=== PATIENT | female | born 1980 | race Caucasian/White ===

== ENCOUNTER 2020-10-17 14:19 | Emergency (ER) | payer OTHER, SELFPAY ==
[2020-10-17 14:32] VITALS: BP 134/89; PULSE 86; RESP 16; TEMP 37.4; O2SAT 100
--- NOTE | 2020-10-17 14:55 | ED.WOUNDLAC ---
HPI - Wound/Laceration General Chief Complaint: Wound/Laceration Stated Complaint: Dog Bite Source: patient Mode of arrival: ambulatory Limitations: no limitations History of Present Illness HPI narrative: Patient is a 39-year-old female who presents complaining with a dog bite to left hand and arm. Patient has puncture wound with abrasions to inner left wrist, puncture wound to top of him and large puncture wound to left index finger. Bleeding controlled. Patient reports dog that bit her has shots up-to-date. She denies taking iczs-zsx-ovozxct medications prior to arrival. Related Data Allergies Allergy/AdvReac Type Severity Reaction Status Date / Time Penicillins Allergy Unknown Unverified 04/11/15 17:29 Review of Systems Review of Systems: Narrative: CONSTITUTIONAL: Denies fever, chills, or sweats. EYES: Denies visual changes, redness, or discharge. ENT: Denies rhinorrhea, congestion, sore throat, or otalgia. CARDIOVASCULAR: Denies chest pain, palpitations, or edema. RESPIRATORY: Denies cough or dyspnea. GASTROINTESTINAL: Denies abdominal pain, nausea, vomiting, or diarrhea. GENITOURINARY: Denies dysuria or hematuria. SKIN: Dog bite to left hand and wrist MUSCULOSKELETAL: Denies back pain, joint pain, or myalgia. NEUROLOGIC: Denies headache, numbness, dizziness, or weakness. PSYCHIATRIC: Denies anxiety or depression. PMFSH Past Medical History Medical History No significant past medical history Surgical History Surgical History No significant past surgical history Family History Family History Other No significant family history Social History Social History Smoking status: Never smoker Alcohol intake: never Substance use: never Living arrangements: with family Occupation/Education: occupation Exam Narrative: Exam Narrative: GENERAL: Well-appearing, well-nourished, and in no acute distress. HEAD: Normocephalic, atraumatic. EYES: No redness or drainage. CHEST: No respiratory distress. EXTREMITIES: Normal range of motion. No edema. SKIN: Multiple abrasions to left wrist, small puncture wound left wrist. Small puncture wound with hematoma on dorsal hand, approximate 0.5 cm laceration to left index finger NEURO: No focal deficits. Alert and oriented x3. Gait steady. PSYCH: Normal affect. No signs of depression or anxiety. Course Vital Signs Vital signs: Vital Signs Temperature 37.4 C 10/17/20 14:32 Pulse Rate 86 10/17/20 14:32 Respiratory Rate 16 10/17/20 14:32 Blood Pressure 134/89 10/17/20 14:32 Pulse Oximetry 100 10/17/20 14:32 Temperature 37.4 C 10/17/20 14:32 Pulse Rate 86 10/17/20 14:32 Respiratory Rate 16 10/17/20 14:32 Blood Pressure 134/89 10/17/20 14:32 Pulse Oximetry 100 10/17/20 14:32 Reviewed. Patient has been instructed to follow-up with her PCP regarding her blood pressure. Procedures Laceration Laceration 1: Date: 10/17/20 Time: 15:38 Site: hand (Index finger) Side (If applicable): left Size (cm): 0.5 Description: irregular Depth: simple, single layer Local Anesthetic: lidocaine 1% Amount of anesthesia used (mL): 3 Pre-repair: irrigated ====== Skin Level ====== Skin layer closed with: nylon Size (cm): 5-0 Number of sutures: 2 Technique: simple, interrupted ====== Subcutaneous Layer ====== ====== Muscle Layer ====== ====== Tendon Layer ====== MDM - Wound/Laceration MDM Narrative Medical decision making narrative: Patient's multiple punctures and abrasions were cleansed thoroughly with wound cleanser, irrigation of larger puncture wound on left index finger. Patient's larger dog bite was suture
[2020-10-17] MEDS: TETANUS,DIPHTHERIA,AC PERTUSSIS ADULT (0.5 ML) BOOSTRIX IM (14:57)
--- NOTE | 2020-10-17 15:04 | PC.NURSE ---
was moved from room 3 to rm 1 per claims coordinator request.
--- NOTE | 2020-10-17 15:28 | PC.NURSE ---
1522 remote inpatient coder in to do sutures.
--- NOTE | 2020-10-17 15:46 | PC.NURSE ---
aware of awaiting dc papers from lens maker.
== END 2020-10-17 15:51 | disposition home or self-care (01) ==
PROVIDERS: Emergency Provider Nurse Practitioner
DX: S61.532A Puncture wound without foreign body of left wrist, initial encounter (principal); S61.432A Puncture wound without foreign body of left hand, initial encounter; S61.211A Laceration without foreign body of left index finger without damage to nail, initial encounter; S60.812A Abrasion of left wrist, initial encounter; W54.0XXA Bitten by dog, initial encounter; Z23 Encounter for immunization
CPT/HCPCS: 12001; 90471; 90715; 99213; G0463

== ENCOUNTER 2021-06-27 04:33 | Emergency (ER) | payer OTHER, SELFPAY ==
--- NOTE | ~2021-06-27 | US_ITS ---
EXAMINATION: US pelvic complete w TV DATE: 06/27/2021 08:08 INDICATION: Right pelvic pain TECHNIQUE: Multiple transabdominal and endovaginal sonographic images of the pelvis were obtained. COMPARISON: None. FINDINGS: The uterus measures 9.3 x 5.5 x 4.1 cm. The endometrial complex measures 6 mm. An IUD is in expected position. The right ovary measures 6.5 x 4.0 cm. There is a 5.4 x 3.9 cm complex cystic les ion with fluid level in the right ovary. The left ovary measures 2.3 x 1.9 x 2.5 cm and contains a 2. 1 x 1.8 x 2.1 cm cystic lesion with thin septation. There is normal vascular flow in the ovaries. The re is no free fluid in the pelvis. IMPRESSION: 1. Findings consistent with hemorrhagic cyst of the right ovary and cyst with thin septation of the l eft ovary. Reviewed, dictated and finalized at location B. IMPRESSION: 1. Findings consistent with hemorrhagic cyst of the right ovary and cyst with t hin septation of the left ovary.
[2021-06-27 04:35] VITALS: BP 130/93; PULSE 94; RESP 20; TEMP 36.7; O2SAT 99
[2021-06-27 04:53] LABS: Basophils Percent Auto 0.4 % (0.2-1.2); Eosinophils Absolute Auto 0.2 K/mm3 (0-0.3); Eosinophils Percent Auto 2.2 % (0-4.4); Hematocrit 41.5 % (37.0-47.0); Hemoglobin 13.7 g/dL (12.0-15.0); Immature Granulocyte Absolute 0.02 K/mm3 (0.00-0.031); Immature Granulocyte Percent A 0.2 % (0-0.5); Lymphocytes Absolute Auto 2.41 K/mm3 (0.9-3.2); Lymphocytes Percent Auto 25.5 % (18.3-44.2); Mean Corpuscular Hemoglobin 29.5 pg (26-34); Mean Corpuscular Volume 89.4 fl (80-100); Mean Platelet Volume 11.9 fl (7.4-10.4); Monocytes Absolute Auto 0.7 K/mm3 (0.1-0.6); Monocytes Percent Auto 7.3 % (2.6-8.5); Neutrophils Absolute Auto 6.1 K/mm3 (1.3-6.7); Neutrophils Percent Auto 64.4 % (45.5-73.1); Platelet Count Result 235 k/mm3 (150-375); Red Blood Count 4.64 M/mm3 (4.2-5.4); Red Cell Distribution Width 12.8 % (11.5-14.5); White Blood Count 9.4 K/mm3 (4.5-10.0)
[2021-06-27 04:56] LABS: Add Urine Microscopic? YES; Appearance Urine Clear (Clear); Bilirubin Urine Negative (Negative); Blood Urine Negative (Negative); Color Urine Yellow (Yellow); Glucose Urine UA Negative (Negative); Ketones Urine Negative (Negative); Leukocyte Esterase Ur Trace LEU/UL (Negative); Mucus Urine Rare /lpf; Nitrate Urine Negative (Negative); Protein Urine Negative (Negative); RBC Urine 0-2 /hpf (0-2); Specific Grav Ur 1.017 (1.001-1.035); Squamous Epithelial Cell Urine Occasional /hpf (Few); Urobilinogen Urine Negative mg/dL (<2.0); WBC Urine 0-3 /hpf
[2021-06-27 05:05] LABS: Alanine Aminotransferase 24 U/L (4-35); Albumin Level 4.3 g/dL (3.5-5.1); Alkaline Phosphatase 71 U/L (38-126); Anion Gap 7 mmol/L (8-16); Aspartate Amino Transferase 29 U/L (14-36); Bilirubin,Total 0.6 mg/dL (0.2-1.3); Blood Urea Nitrogen 10 mg/dL (7-17); Calcium 9.3 mg/dL (8.4-10.2); Carbon Dioxide 24 mmol/L (22-30); Chloride 106 mmol/L (98-107); Estimated CRCL calculation 107 ml/min; Estimated Glomerular Filt Rate > 60; Glucose 102 mg/dL (65-110); Lipase 52 U/L (23-300); Potassium 3.9 mmol/L (3.4-5.0); Sodium 137 mmol/L (137-145)
[2021-06-27 06:56] VITALS: BP 133/87; PULSE 87; RESP 16; O2SAT 100
--- NOTE | 2021-06-27 07:25 | ED.ABDPAIN ---
HPI - Abdominal Pain General Chief Complaint: Abdominal Pain Stated Complaint: pain rlq Time Seen by Provider: 06/27/21 07:08 History of Present Illness HPI narrative: RLQ/pelvic pain. Awoke her from sleep last night. Severe. Stabbing. Associated with nausea. No radiation. Currently completely pain free. She had one prior episode a few days ago. No previous surgeries. Related Data Home Medications Medication Instructions Recorded Confirmed No Home Medications 06/27/21 Allergies Allergy/AdvReac Type Severity Reaction Status Date / Time Penicillins Allergy Unknown Rash Unverified 06/27/21 04:40 Review of Systems Review of Systems: All systems reviewed & are unremarkable except as noted in HPI and below Constitutional: Constitutional: Denies chills and Denies fever(s) ENT: Reports system reviewed and no additional complaints, except as documented Cardiovascular: Cardiovascular: Denies chest pain Respiratory: Respiratory: Denies dyspnea Gastrointestinal: Gastrointestinal: Reports as per HPI Genitourinary: Genitourinary: Denies hematuria, Denies nocturia and Denies dysuria Neurologic: Reports system reviewed and no additional complaints, except as documented [facility] Past Medical History Medical History No significant past medical history Surgical History Surgical History No significant past surgical history Family History Family History Other No significant family history Social History Social History Smoking status: Never smoker Alcohol intake: never Substance use: never Gender identity (if verbalized by the patient): Female Sexual Orientation (if Verbalized by the Patient): Straight or Heterosexual Exam Const: General: healthy appearing, no acute distress and alert Orientation/consciousness: patient oriented x3 HENMT: Head: normal to inspection Neck: Neck: normal visual inspection and no lymphadenopathy Resp: Effort & Inspection: normal respiratory effort Auscultation: clear to auscultation bilaterally, no rales, no rhonchi and no wheezes Cardio: Jugular venous distension: no JVD Rate: regular rate Rhythm: regular rhythm Heart sounds: no murmurs GI: Inspection: non-distended GI Palp: Yes Soft to palpation and No Tenderness to palpation present (GI) Skin: General skin exam: normal color Neuro: General: patient oriented x3 and moves all extremities Speech: normal speech Extrem: General: no edema Psych: Appearance: well kempt Affect: normal affect Course Vital Signs Vital signs: Vital Signs Temperature 36.7 C 06/27/21 04:35 Pulse Rate 94 06/27/21 04:35 Respiratory Rate 20 06/27/21 04:35 Blood Pressure 130/93 H 06/27/21 04:35 Pulse Oximetry 99 06/27/21 04:35 Temperature 36.7 C 06/27/21 04:35 Pulse Rate 90 06/27/21 08:35 Respiratory Rate 19 06/27/21 08:35 Blood Pressure 126/87 06/27/21 08:35 Pulse Oximetry 98 06/27/21 08:35 MDM - Abdominal Pain MDM Narrative Medical decision making narrative: ovarian cysts on US. This is consistent with her pain. She will follow-up with her OBGYN. Medical Records Attestation: I reviewed the patient's medical records. Lab Data Attestation: I reviewed the patient's lab results. Result diagrams: 06/27/21 04:45 06/27/21 04:45 Labs: Lab Results 06/27/21 06/27/21 06/27/21 Range/Units 04:45 04:45 04:45 WBC 9.4 (4.5-10.0) K/mm3 RBC 4.64 (4.2-5.4) M/mm3 Hgb 13.7 (12.0-15.0) g/dL Hct 41.5 (37.0-47.0) % MCV 89.4 (80-100) fl MCH 29.5 (26-34) pg MCHC 33.0 (32-36) g/dl RDW 12.8 (11.5-14.5) % Plt Count 235 (150-375) k/mm3 MPV 11.9 H (7.4-10.4) fl Immature Gran % (Auto) 0.2 (0-0.5) %
[2021-06-27 08:35] VITALS: BP 126/87; PULSE 90; RESP 19; O2SAT 98
== END 2021-06-27 09:16 | disposition home or self-care (01) ==
PROVIDERS: General Practice; Emergency Provider Emergency Medicine; PCP Nurse Practitioner Family
DX: N83.201 Unspecified ovarian cyst, right side (principal); N83.202 Unspecified ovarian cyst, left side; Z97.5 Presence of (intrauterine) contraceptive device
CPT/HCPCS: 36415; 76830; 76856; 80053; 81001; 81025; 83690; 85025; 99284

== ENCOUNTER 2021-07-24 12:22 | Outpatient (CLI) | payer OTHER, SELFPAY ==
--- NOTE | ~2021-07-24 | US_ITS ---
EXAMINATION: US pelvic complete w TV EXAM DATE: 07/24/2021 13:09 INDICATION: R AND L cystic lesion. Right pelvic pain. TECHNIQUE: Pelvic transabdominal and transvaginal sonogram was performed. There are multiple graysca le and Doppler images available for interpretation. Comparison is made to prior examination from 06/27. FINDINGS: Uterus measures 9.4 x 4.2 x 5.2 cm, with IUD centrally located inside the endometrial cavi ty. Endometrial stripe measures 4 mm, within normal limits. There is no free pelvic fluid. Right adnexa: The ovary measures 8.6 x 4.5 x 5.9 cm, has heterogeneous complex cystic appearance. Dim ension is larger than on previous examination. Ovarian vascular flow confirmed. Left adnexa: The ovary measures 2.3 x 1.7 x 2.0 cm and is morphologically normal. Ovarian vascular fl ow confirmed. IMPRESSION: Complex cystic right ovarian mass, probably unruptured hemorrhagic cyst given rapid inter leroy increase in size compared to 3 weeks earlier. No torsion. Recommend 6 week follow-up pelvic sono gram. Reviewed, dictated and finalized at location A. IMPRESSION: Complex cystic right ovarian mass, probably unruptured hemorrhagic cyst given rapid interval increase in size compared to 3 weeks earlier. No tor grover. Recommend 6 week follow-up pelvic sonogram.
[2021-07-27 01:08] LABS: CA-125 7 U/mL (<35)
== END 2021-07-24 12:23 | disposition home or self-care (01) ==
PROVIDERS: PCP Nurse Practitioner Family; Visit Provider Obstetrics & Gynecology Gynecology
DX: N83.201 Unspecified ovarian cyst, right side (principal); N83.202 Unspecified ovarian cyst, left side
CPT/HCPCS: 36415; 76830; 76856; 86304

== ENCOUNTER → 2021-08-15 12:41 | Outpatient (CLI) | payer OTHER, SELFPAY ==
--- NOTE | ~2021-08-15 | US_ITS ---
EXAMINATION: US pelvic complete w TV DATE: 08/15/2021 13:16 INDICATION: Ovarian cyst follow-up TECHNIQUE: Multiple transabdominal and endovaginal sonographic images of the pelvis were obtained. COMPARISON: 07/24/2021, 06/27/2021 FINDINGS: The uterus measures 10.3 x 3.9 x 5.0 cm. An IUD is present in expected position. The endome trial complex measures 9 mm. The right ovary measures 7.5 x 4.6 x 7.6 cm. There is persistent heterog eneous echogenicity a complex mass in the right adnexa which does not appear significantly changed. T he left ovary measures 3.1 x 2.7 x 3.0 cm. There is normal vascular flow in the ovaries. There is no free fluid in the pelvis. IMPRESSION: 1. Complex right adnexal mass, likely ruptured ovarian cyst. Follow-up ultrasound in 6-12 weeks is re commended. Reviewed, dictated and finalized at location A. IMPRESSION: 1. Complex right adnexal mass, likely ruptured ovarian cyst. Follow-up ultrasou nd in 6-12 weeks is recommended.
== END ==
PROVIDERS: Visit Provider Obstetrics & Gynecology Gynecology
DX: R10.2 Pelvic and perineal pain (principal); R19.09 Other intra-abdominal and pelvic swelling, mass and lump
CPT/HCPCS: 76830; 76856

== ENCOUNTER 2021-08-22 17:59 | Day surgery (SDC) | payer OTHER, SELFPAY ==
--- NOTE | ~2021-08-22 | CT_ITS ---
EXAMINATION: CT abdomen pelvis w con EXAM DATE: 08/22/2021 19:35 INDICATION: Severe low abdominal pain. TECHNIQUE: Spiral CT of the abdomen and pelvis was performed following intravenous injection of 100 m L Omnipaque 350. Axial, coronal and sagittal images of the abdomen and pelvis were reviewed. The do se-length product (DLP) for this examination was 837.12 mGy-cm. The exposure was tailored according to patient size (auto mA exposure control), and iterative reconstruction (ASIR) was used as additiona l dose reduction technique. Correlation is made to pelvic sonogram 06/14/2021. FINDINGS: There is a pelvic mass probably arising from the right ovary with fat, soft tissue and calc ium densities, a teratoma measuring 8 cm. There is a serpiginous fluid-filled structure adjacent to t he dermoid and uterus which could be part of the dermoid or could be right-sided hydrosalpinx. Can't exclude pyosalpinx by CT, but there are no secondary findings to specifically suggest this. IUD appea rs to be in expected position. The liver, spleen, adrenal glands and pancreas are unremarkable. Gallbladder is unremarkable. No bi liary obstruction. Portal and splenic veins are patent. Kidneys enhance symmetrically. There is no hydronephrosis. The bladder is unremarkable. There is no retroperitoneal or pelvic lymphadenopa thy. The appendix is normal. The stomach and small bowel are unremarkable. There is expected amount of c olonic stool. No free intraperitoneal gas. The heart is normal in size. There are no pericardial or pleural effusions. The lung bases are unremarkable. The bones are normal. There is right femor al intramedullary luana. IMPRESSION: Pelvic 8 cm teratoma probably right ovarian origin with possible right-sided hydrosalpinx . No secondary findings to specifically suggest this is pyosalpinx but please clinically correlate. I UD in position. Reviewed, dictated and finalized at location G. IMPRESSION: Pelvic 8 cm teratoma probably right ovarian origin with possible ri ght-sided hydrosalpinx. No secondary findings to specifically suggest this is p yosalpinx but please clinically correlate. IUD in position.
--- NOTE | ~2021-08-22 | US_ITS ---
EXAMINATION: US pelvic complete w TV EXAM DATE: 08/22/2021 21:28 INDICATION: RLQ abd pain r/o torsion. TECHNIQUE: Pelvic transabdominal and transvaginal sonogram was performed. There are multiple graysca le and Doppler images available for interpretation. Comparison is made to prior examination from 08/15, 07/24/2021. FINDINGS: Uterus measures 11.8 x 4.5 x 5.2 cm, and is morphologically normal. Endometrial stripe me asures 6 mm, within normal limits. There is no free pelvic fluid. Right adnexa: There is heterogeneous right ovarian complex mass again seen. Previous ultrasound did h ave a region of relatively normal-appearing right ovarian tissue adjacent to the heterogeneous mass w hich is not definitively identified today. This means that the previously seen normal ovarian tissue could have changed in position and is just not visualized, or potentially could have become abnormal from vascular compromise. Mass itself did not have much flow demonstrated on prior studies or on this examination. I discussed this case with the technologist performing examination who stated she was u nsure whether or not she could visualize color flow. Left adnexa: The ovary measures 3.7 x 2.2 x 2.5 cm and is morphologically normal. Ovarian vascular fl ow confirmed. IMPRESSION: Right ovarian teratoma. Could not identify previously seen normal ovarian tissue componen t or definitively confirm Doppler flow today. Reviewed, dictated and finalized at location [facility]. IMPRESSION: Right ovarian teratoma. Could not identify previously seen normal o varian tissue component or definitively confirm Doppler flow today.
[2021-08-22 18:14] VITALS: BP 151/74; PULSE 67; RESP 18; TEMP 36.4; O2SAT 100
[2021-08-22 18:29] LABS: Basophils Percent Auto 0.4 % (0.2-1.2); Eosinophils Absolute Auto 0.1 K/mm3 (0-0.3); Eosinophils Percent Auto 1.1 % (0-4.4); Hematocrit 42.2 % (37.0-47.0); Hemoglobin 14.2 g/dL (12.0-15.0); Immature Granulocyte Absolute 0.03 K/mm3 (0.00-0.031); Immature Granulocyte Percent A 0.3 % (0-0.5); Lymphocytes Absolute Auto 2.58 K/mm3 (0.9-3.2); Lymphocytes Percent Auto 28.7 % (18.3-44.2); Mean Corpuscular HGB Conc 33.6 g/dl (32-36); Mean Platelet Volume 11.4 fl (7.4-10.4); Monocytes Absolute Auto 0.6 K/mm3 (0.1-0.6); Monocytes Percent Auto 6.2 % (2.6-8.5); Neutrophils Absolute Auto 5.7 K/mm3 (1.3-6.7); Neutrophils Percent Auto 63.3 % (45.5-73.1); Platelet Count Result 250 k/mm3 (150-375); Red Blood Count 4.74 M/mm3 (4.2-5.4); Red Cell Distribution Width 12.2 % (11.5-14.5)
[2021-08-22 18:40] LABS: Alanine Aminotransferase 35 U/L (4-35); Albumin Level 4.8 g/dL (3.5-5.1); Alkaline Phosphatase 90 U/L (38-126); Anion Gap 10 mmol/L (8-16); Aspartate Amino Transferase 35 U/L (14-36); Bilirubin,Total 0.4 mg/dL (0.2-1.3); Blood Urea Nitrogen 10 mg/dL (7-17); Calcium 9.8 mg/dL (8.4-10.2); Carbon Dioxide 23 mmol/L (22-30); Chloride 103 mmol/L (98-107); Estimated CRCL calculation 108 ml/min; Estimated Glomerular Filt Rate > 60; Glucose 111 mg/dL (65-110); Lipase 71 U/L (23-300); Potassium 3.4 mmol/L (3.4-5.0); Sodium 136 mmol/L (137-145)
--- NOTE | 2021-08-22 18:43 | ED.GENADULT ---
HPI - General Adult General Chief complaint: Abdominal Pain Stated complaint: abd pain Time Seen by Provider: 08/22/21 18:33 Source: RN notes reviewed History of Present Illness HPI narrative: Patient presents emergency department from home for abdominal pain. Patient states pain began approximately 4 PM pain is located in the right lower quadrant described as sharp and stabbing associate with nausea vomiting she denies any fevers or chills diarrhea or any other symptoms states she has a history of an ovarian cyst on her right ovary states she took tramadol at home with minimal relief Related Data Home Medications Medication Instructions Recorded Confirmed phentermine 37.5 mg PO DAILY 08/22/21 08/22/21 Allergies Allergy/AdvReac Type Severity Reaction Status Date / Time Penicillins Allergy Unknown Rash Unverified 08/22/21 19:50 Review of Systems Review of Systems: Gen.: Denies fevers or chills ENT: Denies congestion Respiratory: Denies shortness of breath or cough CV: Denies chest pain or palpitations GI: See HPI denies burning, urgency, frequency or hematuria Musculoskeletal: Denies back pain or muscle pain Neuro: Denies numbness, tingling, weakness or focal weakness Skin: Denies rash Except as documented, all other systems reviewed and negative PMFSH Past Medical History Medical History No significant past medical history Surgical History Surgical History No significant past surgical history Family History Family History Other No significant family history Social History Social History Smoking status: Never smoker Alcohol intake: never Substance use: never Gender identity (if verbalized by the patient): Female Sexual Orientation (if Verbalized by the Patient): Straight or Heterosexual Exam Narrative: APPEARANCE: No acute distress, nontoxic, resting in bed HEENT: Normocephalic, atraumatic, OMM RESPIRATORY: No respiratory distress, clear to auscultation bilaterally with no rhonchi wheezing or rales CARDIOVASCULAR: RRR s murmur ABDOMINAL: Soft nondistended tender palpation right lower quadrant no tenderness right upper quadrant, left upper quadrant left lower quadrant no rebound or guarding MUSCULOSKELETAl: Moves all extremities. No clubbing, cyanosis or edema. NEURO: Awake and alert. Following commands, speech normal, no focal deficits SKIN:: Warm, dry. Normal Color PSYCHIATRIC: Normal affect/mood Course Course Emergency Course: Reviewed old records Discussed with Dr. Hawkins CT results will obtain ultrasound at this time Discussed with Dr. Rios for Dr. Wiggins presentation work-up will come to the emergency department to evaluate the patient for possible ovarian torsion 2240 Dr rios in ED. will take pt to OR Discussed with patient plan for OR and in agreement at this time Vital Signs Vital signs: Vital Signs Temperature 97.6 F 08/22/21 18:14 Pulse Rate 67 08/22/21 18:14 Respiratory Rate 18 08/22/21 18:14 Blood Pressure 151/74 H 08/22/21 18:14 Pulse Oximetry 100 08/22/21 18:14 Temperature 97.6 F 08/22/21 18:14 Pulse Rate 64 08/22/21 22:14 Respiratory Rate 16 08/22/21 22:14 Blood Pressure 144/76 H 08/22/21 22:14 Pulse Oximetry 98 08/22/21 22:14 Medical Decision Making Vital Signs Vital Signs: Vital Signs Temperature 97.6 F 08/22/21 18:14 Pulse Rate 67 08/22/21 18:14 Respiratory Rate 18 08/22/21 18:14 Blood Pressure 151/74 H 08/22/21 18:14 Pulse Oximetry 100 08/22/21 18:14 Temperature 97.6 F 08/22/21 18:14 Pulse Rate 64 08/22/21 22:14 Respiratory Rate 16 08/22/21 22:14 Blood Pressure 144/76 H 08/22/21 22:14 Pulse Oximetry 98 08/22/21 22:14 Lab Data Result diagrams: 08/22/21 18
[2021-08-22] MEDS: MORPHINE SULFATE (*CRX) 4 MG/ML INJ IV PUSH (19:22)
[2021-08-22] MEDS: ONDANSETRON INJ 4 MG/2 ML VIAL IV PUSH (19:23)
[2021-08-22] MEDS: SODIUM CHLORIDE 0.9% IV 1,000 ML 999 ML IV CONT (19:23)
[2021-08-22 19:45] LABS: Add Urine Microscopic? YES; Appearance Urine Clear (Clear); Bacteria Urine Trace /hpf; Bilirubin Urine Negative (Negative); Blood Urine Negative (Negative); Color Urine Yellow (Yellow); Glucose Urine UA Negative (Negative); Ketones Urine 1+ mg/dL (Negative); Leukocyte Esterase Ur Trace LEU/UL (Negative); Nitrate Urine Negative (Negative); Protein Urine Negative (Negative); Specific Grav Ur 1.014 (1.001-1.035); Squamous Epithelial Cell Urine Few /hpf (Few); Urobilinogen Urine Negative mg/dL (<2.0); WBC Urine 0-3 /hpf
[2021-08-22] MEDS: KETOROLAC 30 MG/ML VIAL (*BKC) IV PUSH (20:29)
[2021-08-22 20:40] VITALS: BP 142/86; PULSE 75; RESP 16; O2SAT 98
[2021-08-22 22:14] VITALS: BP 144/76; PULSE 64; RESP 16; O2SAT 98
[2021-08-22] MEDS: MORPHINE SULFATE (*CRX) 4 MG/ML INJ (22:26)
[2021-08-22] MEDS: ONDANSETRON INJ 4 MG/2 ML VIAL (22:26)
--- NOTE | 2021-08-22 22:27 | PC.NURSE ---
vorb for zofran 4 mg and Morphine [address] Moreno
--- NOTE | 2021-08-22 22:45 | PM.IMHP ---
H&P: HPI History of Present Illness Date/Time: 08/22/21 22:45 Patient is a 40y/o with history of ovarian cyst being monitored by RN [employer]. Patient with recent ultrasound showed a 7 cm cyst with normal ovarian tissue and doppler flow. Patient reports while at work tonight had a sudden onset of pain with no relief withposition or OTC pain meds. Patient reports has IUD for control at this time. Chief Complaint: RLQ pain Review of Systems Review of Systems: nausea and back pain PMFSH Past Medical History Medical History No significant past medical history Surgical History Surgical History No significant past surgical history Family History Family History Other No significant family history Social History Social History Smoking status: Never smoker Alcohol intake: never Substance use: never Gender identity (if verbalized by the patient): Female Sexual Orientation (if Verbalized by the Patient): Straight or Heterosexual Meds Home Medications and Allergies Home Medications Medication Instructions Recorded Confirmed Type phentermine 37.5 mg PO DAILY 08/22/21 08/22/21 History Allergies Allergy/AdvReac Type Severity Reaction Status Date / Time Penicillins Allergy Unknown Rash Unverified 08/22/21 19:50 Vital Signs Vital Signs - 24 hr 08/22/21 18:14 08/22/21 20:40 08/22/21 22:14 Temperature 36.4 C Pulse Rate 67 75 64 Respiratory Rate 18 16 16 Blood Pressure 151/74 H 142/86 H 144/76 H Pulse Oximetry 100 98 98 Exam Const: General: anxious and uncomfortable Nutritional Appearance: overweight Orientation/consciousness: patient oriented x3 GI: GI Palp: Yes Soft to palpation and Yes Guarding due to palpation present (GI) Auscultation: normal bowel sounds H&P: Results Labs Labs: Short CBC 08/22/21 Range/Units 18:22 WBC 9.0 (4.5-10.0) K/mm3 Hgb 14.2 (12.0-15.0) g/dL Hct 42.2 (37.0-47.0) % Plt Count 250 (150-375) k/mm3 BMP 08/22/21 18:22 Sodium 136 L Potassium 3.4 Chloride 103 Carbon Dioxide 23 BUN 10 Creatinine 0.70 Glucose 111 H Calcium 9.8 Liver Function 08/22/21 Range/Units 18:22 Total Bilirubin 0.4 (0.2-1.3) mg/dL AST 35 (14-36) U/L ALT 35 (4-35) U/L Alkaline Phosphatase 90 (38-126) U/L Albumin 4.8 (3.5-5.1) g/dL Urine 08/22/21 Range/Units 19:09 Urine Color Yellow (Yellow) Urine Appearance Clear (Clear) Urine pH 8.0 (5.0-9.0) Ur Specific [place] 1.014 (1.001-1.035) Urine Protein Negative (Negative) mg/dL Urine Glucose (UA) Negative (Negative) mg/dL Assessment and Plan Assessment and plan (1) Torsion of right ovary: Code(s): N83.511 - Torsion of right ovary and ovarian pedicle Status: Acute Assessment and Plan: Scheduled for a laparoscopic ovarian cystectomy with possible oopherectomy. Risk and benefits reviewed with patient including bleeding infection trauma and damage to surrounding organs. (2) Mass of right ovary: Code(s): N83.8 - Other noninflammatory disorders of ovary, fallopian tube and broad ligament Status: Acute
--- NOTE | 2021-08-22 23:13 | WPDANESEPPF ---
Anes - Initial Pre Proc Eval Date/Time: 08/22/21 23:13 Surgeon: Jake Rios MD Pre Op Diagnosis: abd pain Patient Data Age: 40 Gender: F Height: 1.7 m Weight: 91.17 kg Last Vital Signs Temp 36.4 C 08/22/21 18:14 Pulse 64 08/22/21 22:14 Resp 16 08/22/21 22:14 BP 144/76 H 08/22/21 22:14 Pulse Ox 98 08/22/21 22:14 Allergies Allergy/AdvReac Type Severity Reaction Status Date / Time Penicillins Allergy Unknown Rash Unverified 08/22/21 19:50 Home Medications Medication Instructions Recorded Confirmed Type phentermine 37.5 mg PO DAILY 08/22/21 08/22/21 History Laboratory Tests 08/22/21 08/22/21 08/22/21 18:22 18:22 19:09 WBC 9.0 K/mm3 K/mm3 (4.5-10.0) RBC 4.74 M/mm3 M/mm3 (4.2-5.4) Hgb 14.2 g/dL g/dL (12.0-15.0) Hct 42.2 % % (37.0-47.0) MCV 89.0 fl fl (80-100) MCH 30.0 pg pg (26-34) MCHC 33.6 g/dl g/dl (32-36) RDW 12.2 % % (11.5-14.5) Plt Count 250 k/mm3 k/mm3 (150-375) MPV 11.4 fl H fl (7.4-10.4) Immature Gran % (Auto) 0.3 % % (0-0.5) Neut % (Auto) 63.3 % % (45.5-73.1) Lymph % (Auto) 28.7 % % (18.3-44.2) [place] % (Auto) 6.2 % % (2.6-8.5) Eos % (Auto) 1.1 % % (0-4.4) Baso % (Auto) 0.4 % % (0.2-1.2) Lymph # (Auto) 2.58 K/mm3 K/mm3 (0.9-3.2) [place] # (Auto) 0.6 K/mm3 K/mm3 (0.1-0.6) Eos # (Auto) 0.1 K/mm3 K/mm3 (0-0.3) Baso # (Auto) 0.0 K/mm3 K/mm3 (0.0-0.1) Abs Immat Gran (auto) 0.03 K/mm3 K/mm3 (0.00-0.031) Absolute Neuts (auto) 5.7 K/mm3 K/mm3 (1.3-6.7) Absolute Nucleated RBC 0.0 K/mm3 K/mm3 (0.0-0.012) Nucleated RBC % 0.0 % % (0.0-0.2) Sodium 136 mmol/L L mmol/L (137-145) Potassium 3.4 mmol/L mmol/L (3.4-5.0) Chloride 103 mmol/L mmol/L (98-107) Carbon Dioxide 23 mmol/L mmol/L (22-30) Anion Gap 10 mmol/L mmol/L (8-16) BUN 10 mg/dL mg/dL (7-17) Creatinine 0.70 mg/dL mg/dL (0.7-1.0) Estim Creat Clear Calc 108 ml/min ml/min Estimated GFR > 60 (59 - ) Glucose 111 mg/dL H mg/dL (65-110) Calcium 9.8 mg/dL mg/dL (8.4-10.2) Total Bilirubin 0.4 mg/dL mg/dL (0.2-1.3) AST 35 U/L U/L (14-36) ALT 35 U/L U/L (4-35) Alkaline Phosphatase 90 U/L U/L (38-126) Total Protein 7.0 g/dL g/dL (6.3-8.2) Albumin 4.8 g/dL g/dL (3.5-5.1) Lipase 71 U/L U/L (23-300) Urine Color Yellow (Yellow) Urine Appearance Clear (Clear) Urine pH 8.0 (5.0-9.0) Ur Specific [place] 1.014 (1.001-1.035) Urine Protein Negative mg/dL mg/dL (Negative) Urine Glucose (UA) Negative mg/dL mg/dL (Negative) Urine Ketones 1+ mg/dL H mg/dL (Negative) Ur Blood (Man) Negative (Negative) Urine Nitrate Negative (Negative) Urine Bilirubin Negative (Negative) Urine Urobilinogen Negative mg/dL mg/dL (<2.0) Leukocyte Esterase Rfl Trace PRESTON/UL H PRESTON/UL (Negative) Urine RBC 3-5 /hpf H /hpf (0-2) Urine WBC 0-3 /hpf /hpf Ur Squamous Epith Cells Few /hpf /hpf (Few) Urine Bacteria Trace /hpf /hpf Patient hx anesthesia problems: none Family hx anesthesia problems: none Results Review: All pre-operative results and documents have been reviewed as part of the pre-operative evaluation. [facility], LAT[facility] Past Medical History Medical History (Updated 08/22/21 @ 23:16 by Cornelius Bach MD) Femur fracture Obesity Surgical History Surgical History No significant past surgical history Family History Family History (Reviewed 1
[2021-08-22] MEDS: HYDROmorphone HCL INJ (*CRX) 1 MG/ML SYR 0.5 MG IV PUSH (23:16)
--- NOTE | 2021-08-22 23:25 | PC.NURSE ---
or is ready for 12 at this time. rn notified.
[2021-08-23] VITALS (8 sets, daily range): BP systolic 102–123; BP diastolic 63–77; PULSE 54–72; RESP 14–18; TEMP 36.4; O2SAT 100
[2021-08-23] MEDS: ceFAZolin SODIUM 1 GM VIAL 2 GM IV PUSH
[2021-08-23] MEDS: LACTATED RINGERS 1,000 ML 30 ML IV CONT (01:38)
[2021-08-23] MEDS: fentaNYL CITRATE INJ (*CRX) 100 MCG/2 ML VIAL 25 MCG IV PUSH ×4 (02:21→02:35)
[2021-08-23] MEDS: HYDROcodone/acetaminophen (*CRX) 5-325 MG TABLET 1 TAB PO (02:55)
[2021-08-23] MEDS: diphenhydrAMINE HCl INJ 50 MG/ML VIAL 25 MG IV PUSH (03:00)
--- NOTE | 2021-08-24 06:12 | OP_ITS ---
DATE OF PROCEDURE: 08/23/2021 PREOPERATIVE DIAGNOSES: Right ovarian cyst and right ovarian hydrosalpinx and right ovarian torsion. PROCEDURE PERFORMED: laparoscopy with right salpingo-oophorectomy. ANESTHESIA: General. ESTIMATED BLOOD LOSS: 50 cc. COMPLICATIONS: None. FINDINGS: Normal cervix. Laparoscopic findings, there is a 12 cm right adnexal mass, which appeared fluid filled dark and necrotic and torsed three times. The left ovary and tube normal and uterus appeared normal in size. PROCEDURE IN DETAIL: The patient was taken to the operating room with IV running, prepared and draped in a normal sterile fashion. Bladder was drained. a bivalve speculum was placed. The anterior lip of the uterus is grasped with a single-tooth tenaculum and a uterine manipulator was inserted. . Attention was then directed to the abdomen and a 1 cm umbilical incision. A pneumoperitoneum was created with veres needle and co2 gas. a 5mm incision was made in left quadrant and trocar placed. a 11 mm port was placed and trocar placed both under direct visualization. The tube and ovary were freed from the posterior cul de sac and untorsed. the right infundibulum pelvic ligament and uterine ovarian ligament was transected with harmonic scalpel. A larger trocar was placed after an attempt to place ocary in tube with 11mm bag. A 15 mm trocar and bag was placed and right ovary was then placed in an EndoCatch bag and was then removed from the right lower quadrant. the abdomen was irrigated copiously. The right incision fascia was closed with 0 vicryl on ur6 needle. the the skin was closed with 4-0 vicryl. the incisions injected with 1% lidocaine. The instruments removed and abdomen was completely desufflated. Dermabond was placed on each of the incision. Instruments was removed from the vagina. Hemostasis noted. The patient tolerated the procedure well. Sponge, lap, and needle counts were correct x2. The patient did receive 2 grams of Ancef. D I MT: William SHAY
== END 2021-08-23 03:43 | disposition home or self-care (01) ==
LOC: ANHED 18:47 → ANHSURGERY 22:15
PROVIDERS: Emergency Provider Emergency Medicine; PCP Internal Medicine; Visit Provider Obstetrics & Gynecology
PROC: (CPT 49320; principal; 2021-08-22 23:30)
DX: N83.511 Torsion of right ovary and ovarian pedicle (principal); N70.11 Chronic salpingitis; D27.0 Benign neoplasm of right ovary; E66.9 Obesity, unspecified; Z68.31 Body mass index [BMI] 31.0-31.9, adult
CPT/HCPCS: 58661; 36415; 74177; 76830; 76856; 80053; 81001; 81025; 83690; 85025; 88305; 96374; 96375; 96376; 99285; A9270; J0330; J0690; J1170; J1200; J1885; J2250; J2270; J2405; J2704; J2710; J3010; J7030; J7120; Q9967

== ENCOUNTER → 2021-11-15 00:46 | Outpatient (CLI) | payer OTHER, SELFPAY ==
[2021-11-15 20:43] LABS: SARS-CoV-2 RNA PCR Positive
== END ==
PROVIDERS: PCP Internal Medicine; Visit Provider Nurse Practitioner Family
DX: U07.1 COVID-19 (principal)
CPT/HCPCS: C9803; U0003; U0005

== ENCOUNTER 2022-03-13 11:15 | Outpatient (CLI) | payer OTHER, SELFPAY ==
--- NOTE | ~2022-03-13 | CT_ITS ---
EXAMINATION: CT brain wo con DATE: 03/13/2022 11:44 INDICATION: Right-sided headache for one week TECHNIQUE: Computed tomography (CT) of the head was performed without intravenous contrast. The mA wa s adjusted according to patient size. Iterative reconstruction technique was employed. Exam dose: 60 5.33 mGy-cm total exam DLP. COMPARISON: None FINDINGS: No intracranial mass lesion or hemorrhage or cerebrovascular accident. No midline shift or mass effect effect. Normal ventricular size. Normal griffiths-white matter differentiation. No subdural or epidural hematoma. The orbital contents are unremarkable. The mastoid air cells and included paranasal sinuses are unremarkable. No fracture or bone destruction of the cranial vault. IMPRESSION: Normal examination Reviewed, dictated and finalized at [facility]. Reviewed, dictated and finalized at location [facility]. IMPRESSION: Normal examination
== END 2022-03-13 11:16 | disposition home or self-care (01) ==
PROVIDERS: PCP Internal Medicine; Visit Provider Registered Nurse
DX: G44.85 Primary stabbing headache (principal)
CPT/HCPCS: 70450

== ENCOUNTER → 2022-08-20 11:24 | Outpatient (CLI) | payer OTHER, SELFPAY ==
--- NOTE | ~2022-08-20 | MM_ITS ---
EXAMINATION: MM screening elaine BI w roseanne HISTORY: Screening mammogram TECHNIQUE: Craniocaudal and mediolateral oblique 3-D tomosynthesis images were obtained and synthetic 2-D images were generated. CAD analysis was submitted and interpreted. COMPARISON: None, baseline BREAST PARENCHYMAL COMPOSITION: There are scattered areas of fibroglandular density. FINDINGS: RIGHT BREAST: An asymmetry is present in the posterior third of the outer breast 8.3 cm from the nipp le on the craniocaudal view. LEFT BREAST: No suspicious mass, calcification, or architectural distortion are identified to suggest malignancy. IMPRESSION: 1. Right breast asymmetry on the craniocaudal view. 2. Additional mammographic views and possible breast ultrasound are recommended. BI-RADS Category 0: Incomplete: Needs additional imaging evaluation. Reviewed, dictated and finalized at location A. IMPRESSION: 1. Right breast asymmetry on the craniocaudal view. 2. Additional mammographic views and possible breast ultrasound are recommended . BI-RADS Category 0: Incomplete: Needs additional imaging evaluation.
== END ==
PROVIDERS: PCP Nurse Practitioner Family; Visit Provider Advanced Practice Midwife
DX: Z12.31 Encounter for screening mammogram for malignant neoplasm of breast (principal); R92.8 Other abnormal and inconclusive findings on diagnostic imaging of breast
CPT/HCPCS: 77063; 77067

== ENCOUNTER → 2022-09-04 08:49 | Outpatient (CLI) | payer OTHER, SELFPAY ==
--- NOTE | ~2022-09-04 | MM_ITS ---
EXAMINATION: MM diagnostic elaine RT w roseanne HISTORY: Follow-up right breast asymmetry TECHNIQUE: Additional 3-D tomosynthesis images of the right breast were performed and synthetic 2-D i mages were generated. CAD analysis was submitted and interpreted. COMPARISON: 08/20/2022 BREAST PARENCHYMAL COMPOSITION: Breast composed of scattered areas of fibroglandular density FINDINGS: Right breast asymmetry laterally in the right breast on CC view disappears with spot compre ssion views. No suspicious masses, calcifications or architectural distortion in the right breast to suggest malignancy. IMPRESSION: 1. No evidence for malignancy in the right breast. 2. Routine yearly screening mammogram and regular clinical breast examination are recommended. BI-RADS Category 1: Negative Reviewed, dictated and finalized at location A. IMPRESSION: 1. No evidence for malignancy in the right breast. 2. Routine yearly screening mammogram and regular clinical breast examination a re recommended. BI-RADS Category 1: Negative
== END ==
PROVIDERS: PCP Internal Medicine; Visit Provider Advanced Practice Midwife
DX: R92.8 Other abnormal and inconclusive findings on diagnostic imaging of breast (principal)
CPT/HCPCS: 77061; 77065; G0279

== ENCOUNTER 2024-02-24 12:31 | Outpatient (CLI) | payer OTHER, SELFPAY ==
--- NOTE | ~2024-02-24 | MM_ITS ---
EXAMINATION: MM screening elaine BI w roseanne HISTORY: Screening mammogram TECHNIQUE: Craniocaudal and mediolateral oblique 3-D tomosynthesis images were obtained and synthetic 2-D images were generated. CAD analysis was submitted and interpreted. COMPARISON: 09/04/2022 right diagnostic mammogram 08/20/2022 bilateral screening mammogram BREAST PARENCHYMAL COMPOSITION: There are scattered areas of fibroglandular density. FINDINGS: There is no evidence of suspicious mass, calcification, or architectural distortion to sugg est malignancy in either breast. There has been no suspicious interval change. IMPRESSION: 1. No mammographic evidence of malignancy. 2. Recommend routine screening mammography in one year. BI-RADS Category 1: Negative Reviewed, dictated and finalized at location A.
== END 2024-02-24 12:32 ==
PROVIDERS: PCP Nurse Practitioner Family; Visit Provider Nurse Practitioner Obstetrics & Gynecology
DX: Z12.31 Encounter for screening mammogram for malignant neoplasm of breast (principal)
CPT/HCPCS: 77063; 77067